=== PATIENT | female | born 1950 | race Caucasian/White ===

== ENCOUNTER → 2019-04-20 07:54 | Outpatient (CLI) | payer OTHER, SELFPAY ==
--- NOTE | ~2019-04-20 | US_ITS ---
EXAMINATION: US abdomen complete EXAM DATE: 04/20/2019 08:35 INDICATION: Pancreatic mass. TECHNIQUE: Multiple grayscale and Doppler images of the complete abdomen were obtained (by a technolo gist who performed the scan) and subsequently reviewed. Comparison is made to prior examination from 06/17/2018. FINDINGS: The abdominal aorta is normal in caliber. Visualized portion IVC is patent. Previously seen pancr eatic cystic region no longer identified. In this location there is now a hypoechoic region measuring 7 mm, could be the same lesion with interval collapse of the fluid component. Previous study had a c ystic region measuring up to 1.7 cm. The liver has normal echogenicity and contour. Liver cyst measuring 1 cm. There is no evidence of i ntrahepatic biliary duct dilation. Portal venous flow was seen in the hepatopedal, normal direction and has normal Doppler waveform. Common bile duct measures 4 mm, which is normal. The gallbladder wall is normal in thickness, with ex pected amount of distention. Small amount of fluid identified adjacent to the gallbladder fossa. The re is no cholelithiases. Technologist performing exam reports patient did not demonstrate sonographic Jolly's sign. Please note that this sign is less reliable in patients who have received pain medic ation. Right kidney: There is normal contour and echogenicity. It measures 11.0 x 4.3 x 5.9 centimeters. There are no focal renal lesions identified. There is no hydronephrosis. Left kidney: There is normal contour and echogenicity. It measures 11.2 x 4.7 x 4.8 centimeters. T here are no focal renal lesions identified. There is no hydronephrosis. The spleen measures 8.3 centimeters and is morphologically normal. IMPRESSION: 1. Significant interval decrease in size of pancreatic lesion, no fluid component identified today. Region had demonstrated 4 years of stability between prior CT scans and is therefore likely benign. C onsider one-year follow-up ultrasound or CT. Reviewed, dictated and finalized at location B. ING MACHINE MECHANIC IMPRESSION: 1. Significant interval decrease in size of pancreatic lesion, no fluid compon ent identified today. Region had demonstrated 4 years of stability between prio r CT scans and is therefore likely benign. Consider one-year follow-up ultrasou nd or CT.
== END ==
PROVIDERS: PCP Internal Medicine; Visit Provider Internal Medicine
DX: K86.89 Other specified diseases of pancreas (principal)
CPT/HCPCS: 76700

== ENCOUNTER → 2019-05-30 11:08 | Outpatient (CLI) | payer OTHER, SELFPAY ==
--- NOTE | ~2019-05-30 | MM_ITS ---
EXAMINATION: MM screening [facility] BI w shereen HISTORY: Screening mammogram TECHNIQUE: Craniocaudal and mediolateral oblique 3-D tomosynthesis images were obtained and synthetic 2-D images were generated. CAD analysis was submitted and interpreted. COMPARISON: 02/11/2019, 03/18/2017, 02/20/2016 bilateral digital screening mammogram examinations BREAST PARENCHYMAL COMPOSITION: There are scattered areas of fibroglandular density. FINDINGS: There is no evidence of suspicious mass, calcification, or architectural distortion to sugg est malignancy in either breast. There has been no suspicious interval change. IMPRESSION: 1. No mammographic evidence of malignancy. 2. Recommend routine screening mammography in one year. BI-RADS Category 1: Negative Reviewed, dictated and finalized at location A.
== END ==
PROVIDERS: PCP Internal Medicine; Visit Provider Obstetrics & Gynecology Gynecology
DX: Z12.31 Encounter for screening mammogram for malignant neoplasm of breast (principal)
CPT/HCPCS: 77063; 77067

== ENCOUNTER → 2020-06-18 10:32 | Outpatient (CLI) | payer OTHER, SELFPAY ==
--- NOTE | ~2020-06-18 | MM_ITS ---
EXAMINATION: MM screening [facility] BI w shereen HISTORY: Screening mammogram TECHNIQUE: Craniocaudal and mediolateral oblique 3-D tomosynthesis images were obtained and synthetic 2-D images were generated. CAD analysis was submitted and interpreted. COMPARISON: 05/30/2019, 04/14/2018, 03/18/2017 bilateral digital screening mammogram examinations BREAST PARENCHYMAL COMPOSITION: There are scattered areas of fibroglandular density. FINDINGS: There is no evidence of suspicious mass, calcification, or architectural distortion to sugg est malignancy in either breast. There has been no suspicious interval change. IMPRESSION: 1. No mammographic evidence of malignancy. 2. Recommend routine screening mammography in one year. BI-RADS Category 1: Negative Reviewed, dictated and finalized at location A.
--- NOTE | ~2020-06-18 | DEXA_ITS ---
Bone Density Report Name: Stacia Albarado Age: 70 Sex: Female Ethnicity: White Date of : 1950 Indication: osteopenia; postmenopausal Referring Provider: LUDWIG GORDON Study: Bone densitometry was performed. Exam Date: June 18, 2020 Accession number: [id number] Bone Density: Region BMD T-score Z-score Classification AP Spine (L1-L4) 0.840 -1.9 0.3 Osteopenia Femoral Neck (Left) 0.742 -1.0 0.9 Normal Total Hip (Left) 0.831 -0.9 0.7 Normal Femoral Neck (Right) 0.660 -1.7 0.2 Osteopenia Total Hip (Right) 0.854 -0.7 0.8 Normal Total Hip Mean 0.843 -0.8 0.8 Normal World Health Organization criteria for BMD impression classify patients as: Normal (T-score at or above -1.0), Osteopenia (T-score between -1.0 and -2.5), or Osteoporosis (T-score at or below -2.5). 10-year Fracture Risk(1): Major Osteoporotic Fracture 9.5% Hip Fracture 1.7% Reported Risk Factors: [place] (), Neck BMD=0.660, BMI=21.3 (1) FRAX(R) Version 3.08. Fracture probability calculated for an untreated patient. Fracture probability may be lower if the patient has received treatment. Previous Exams: Region Exam Age BMD T-score BMD Change BMD Change Date g/cm2 vs Baseline vs Previous AP Spine(L1-L4) 06/18/2020 70 0.840 -1.9 -0.084 -0.028* 04/14/2018 67 0.868 -1.6 -0.056 -0.022 02/04/2016 65 0.890 -1.4 -0.034 0.018 11/07/2013 63 0.872 -1.6 -0.052 -0.023* 09/24/2011 61 0.895 -1.4 -0.030 -0.007 09/19/2009 59 0.902 -1.3 -0.023 0.023 09/15/2007 57 0.879 -1.5 -0.045 0.023* 09/10/2005 55 0.856 -1.7 -0.068 -0.068 06/07/2003 53 0.924 -1.1 Total Hip(Left) 06/18/2020 70 0.831 -0.9 0.056 0.004 04/14/2018 67 0.827 -0.9 0.052 -0.060* 02/04/2016 65 0.887 -0.4 0.112 0.022 11/07/2013 63 0.865 -0.6 0.090 0.021 09/24/2011 61 0.844 -0.8 0.068 0.053* 09/19/2009 59 0.791 -1.2 0.016 -0.010 09/15/2007 57 0.801 -1.2 0.026 -0.041* 09/10/2005 55 0.842 -0.8 0.067 0.067 06/07/2003 53 0.775 -1.4 Total Hip(Right) 06/18/2020 70 0.854 -0.7 0.041 -0.028* 04/14/2018 67 0.881 -0.5 0.068 -0.058* 02/04/2016 65 0.939 0.0 0.126 0.001 11/07/2013 63 0.938 0.0 0.125 0.080* 09/24/2011 61 0.858 -0.7 0.045
== END ==
PROVIDERS: PCP Internal Medicine; Visit Provider Obstetrics & Gynecology Gynecology
DX: Z12.31 Encounter for screening mammogram for malignant neoplasm of breast (principal); Z78.0 Asymptomatic menopausal state; M85.89 Other specified disorders of bone density and structure, multiple sites
CPT/HCPCS: 77063; 77067; 77080

== ENCOUNTER 2021-01-02 07:46 | Outpatient (CLI) | payer OTHER, SELFPAY ==
--- NOTE | ~2021-01-02 | MR_ITS ---
EXAMINATION: MR shoulder RT wo con DATE: 01/02/2021 09:11 INDICATION: Right shoulder pain. TECHNIQUE: Magnetic resonance imaging (MRI) of the right shoulder was performed without intravenous c ontrast. Sequences included axial PD-weighted FS FSE, coronal oblique PD-weighted FS FSE and T2-weigh rhiannon FS FSE, and sagittal oblique T2-weighted FS FSE and T1-weighted FSE. COMPARISON: None. FINDINGS: Coracoacromial arch: The acromion undersurface is curved in morphology (type II). There is moderate acromioclavicular join t osteoarthritis. There is moderate subacromial/subdeltoid bursitis. Rotator cuff: There is moderate supraspinatus tendinopathy and mild infraspinatus tendinopathy. Teres minor tendon is normal. There is moderate subscapularis tendinopathy. No tear. There is no asymmetric fatty atroph y of the rotator cuff muscle bellies. There is edema at the myotendinous junction of supraspinatus, c onsistent with mild strain. Biceps tendon and glenoid labrum: Biceps tendon is in bicipital groove. There is mild intra-articular biceps tendinopathy. There is a d egenerative tear of superior glenoid labrum. Fluid: There is a small glenohumeral joint effusion. Bones/cartilage: There is partial-thickness cartilage loss of superior glenoid with subchondral cyst. There is partial -thickness cartilage loss of humeral head, worst superomedially. IMPRESSION: 1. Moderate rotator cuff tendinopathy. 2. Mild strain of supraspinatus muscle. 3. Moderate glenohumeral joint chondrosis. 4. Moderate acromioclavicular joint osteoarthritis. 5. Mild intra-articular biceps tendinopathy. 6. Small glenohumeral joint effusion. 7. Moderate subacromial/subdeltoid bursitis. Reviewed, dictated and finalized at location A. BOAT CAPTAIN
== END 2021-01-02 07:47 | disposition home or self-care (01) ==
PROVIDERS: PCP Internal Medicine; Visit Provider Orthopaedic Surgery
DX: M25.511 Pain in right shoulder (principal); M75.81 Other shoulder lesions, right shoulder; S46.011A Strain of muscle(s) and tendon(s) of the rotator cuff of right shoulder, initial encounter; M94.8X1 Other specified disorders of cartilage, shoulder; M19.011 Primary osteoarthritis, right shoulder; M25.411 Effusion, right shoulder; M75.51 Bursitis of right shoulder
CPT/HCPCS: 73221

== ENCOUNTER → 2021-05-19 07:59 | Outpatient (CLI) | payer OTHER, SELFPAY ==
--- NOTE | ~2021-05-19 | US_ITS ---
EXAMINATION: US right upper quadrant EXAM DATE: 05/19/2021 08:23 INDICATION: Pancreatic lesion . TECHNIQUE: Multiple grayscale and Doppler images of the abdomen right upper quadrant were obtained (b y a technologist who performed the scan) and subsequently reviewed. Comparison is made to prior exami nation from 04/20/2019. FINDINGS: There is thin pancreatic head cystic region measuring 5 x 9 mm, consistent with benign hist ology. Could be a The liver has normal echogenicity and contour. There is a 1.2 x 0.8 x 1.5 cm liver cyst. There is no evidence of intrahepatic biliary duct dilation. Portal venous flow was seen in t he hepatopedal, normal direction and has normal Doppler waveform. No right-sided hydronephrosis. Common bile duct measures 4 mm, which is normal. The gallbladder wall is normal in thickness, with ex pected amount of distention. No sonographic evidence of pericholecystic fluid. There is no cholelit hiases. Technologist performing exam reports patient did not demonstrate sonographic Jolly's sign. Please note that this sign is less reliable in patients who have received pain medication. IMPRESSION: Pancreatic and liver cysts, benign findings. Reviewed, dictated and finalized at location B.
== END ==
PROVIDERS: PCP Internal Medicine; Visit Provider Internal Medicine
DX: K86.9 Disease of pancreas, unspecified (principal); K85.90 Acute pancreatitis without necrosis or infection, unspecified; K76.89 Other specified diseases of liver
CPT/HCPCS: 76705

== ENCOUNTER → 2021-05-20 12:24 | Outpatient (CLI) | payer OTHER, SELFPAY ==
--- NOTE | ~2021-05-20 | MR_ITS ---
EXAMINATION: MR brain/brain stem wo/w con EXAM DATE: 05/20/2021 13:09 INDICATION: Headache, worsening at the vertex. TECHNIQUE: Magnetic resonance imaging (MRI) of the brain/brain stem obtained without contrast. Sagit brijehs T1, axial diffusion, gradient echo (T2*), T1, T2, FLAIR sequences obtained. Patient was then inj ected with 10 cc intravenous Multihance contrast. Axial and coronal postcontrast T1 weighted sequence s obtained. There is no prior study for comparison. FINDINGS: There are punctate old bilateral basal ganglia lacunar infarctions. There are no areas of r estricted diffusion to suggest acute infarction. There is no acute hemorrhage seen on the T2*, a hem osiderin sensitive sequence. No intraparenchymal brain mass lesion. There is mild periventricular and subcortical T2/FLAIR signal hyperintensity, nonspecific but probably related to small vessel isc hemic disease (microangiopathy). There is mild prominence of the sulci and ventricles related to ce rebral atrophy. There are no extra-axial collections. Flow voids are seen in the cerebral arteries on the T2-weighted sequences consistent with their expected patency. Patient has had bilateral ocula r lens surgery. Soft tissue is unremarkable. IMPRESSION: 1. No acute intracranial findings. 2. Chronic age related findings. 3. Punctate old bilateral lacunar infarctions. Reviewed, dictated and finalized at location B.
[2021-05-20 12:50] LABS: Estimated Glomerular Filt Rate > 60
== END ==
PROVIDERS: PCP Internal Medicine; Visit Provider Internal Medicine
DX: R51.9 Headache, unspecified (principal); R93.0 Abnormal findings on diagnostic imaging of skull and head, not elsewhere classified
CPT/HCPCS: 70553; A9577

== ENCOUNTER → 2021-12-02 10:47 | Outpatient (CLI) | payer OTHER, SELFPAY ==
--- NOTE | ~2021-12-02 | MM_ITS ---
EXAMINATION: MM screening [facility] BI w shereen HISTORY: Screening TECHNIQUE: Craniocaudal and mediolateral oblique 3-D tomosynthesis images were obtained and synthetic 2-D images were generated. CAD analysis was submitted and interpreted. COMPARISON: Comparison to multiple prior studies sequentially, with oldest reviewed study dated 11/22. BREAST PARENCHYMAL COMPOSITION: The breasts are heterogeneously dense, which may obscure small masses FINDINGS: There is no evidence of suspicious mass, calcification, or architectural distortion to sugg est malignancy in either breast. There has been no suspicious interval change. IMPRESSION: 1. No mammographic evidence of malignancy. 2. Recommend routine screening mammography in one year. BI-RADS Category 1: Negative Reviewed, dictated and finalized at location A.
== END ==
PROVIDERS: PCP Internal Medicine; Visit Provider Obstetrics & Gynecology Gynecology
DX: Z12.31 Encounter for screening mammogram for malignant neoplasm of breast (principal)
CPT/HCPCS: 77063; 77067

== ENCOUNTER → 2022-10-26 12:33 | Outpatient (CLI) | payer OTHER, SELFPAY ==
--- NOTE | ~2022-10-26 | DEXA_ITS ---
Bone Density Report Name: KENNETH SUE Age: 72 Sex: Female Ethnicity: White Date of : 1950 Indication: osteopenia; height loss; postmenopausal Referring Provider: LUDWIG GORDON Study: Bone densitometry was performed. Exam Date: October 26, 2022 Accession number: [id number] Bone Density: Region BMD T-score Z-score Classification AP Spine (L1-L4) 0.847 -1.8 0.5 Osteopenia Femoral Neck (Left) 0.737 -1.0 1.0 Normal Total Hip (Left) 0.835 -0.9 0.8 Normal Femoral Neck (Right) 0.719 -1.2 0.8 Osteopenia Total Hip (Right) 0.856 -0.7 1.0 Normal Total Hip Mean 0.846 -0.8 0.9 Normal World Health Organization criteria for BMD impression classify patients as: Normal (T-score at or above -1.0), Osteopenia (T-score between -1.0 and -2.5), or Osteoporosis (T-score at or below -2.5). 10-year Fracture Risk(1): Major Osteoporotic Fracture 9.0% Hip Fracture 1.4% Reported Risk Factors: [place] (), Neck BMD=0.719, BMI=21.1 (1) FRAX(R) Version 3.08. Fracture probability calculated for an untreated patient. Fracture probability may be lower if the patient has received treatment. Previous Exams: Region Exam Age BMD T-score BMD Change BMD Change Date g/cm2 vs Baseline vs Previous AP Spine(L1-L4) 10/26/2022 72 0.847 -1.8 -0.077 0.007 06/18/2020 70 0.840 -1.9 -0.084 -0.028* 04/14/2018 67 0.868 -1.6 -0.056 -0.022 02/04/2016 65 0.890 -1.4 -0.034 0.018 11/07/2013 63 0.872 -1.6 -0.052 -0.023* 09/24/2011 61 0.895 -1.4 -0.030 -0.007 09/19/2009 59 0.902 -1.3 -0.023 0.023 09/15/2007 57 0.879 -1.5 -0.045 0.023* 09/10/2005 55 0.856 -1.7 -0.068 -0.068 06/07/2003 53 0.924 -1.1 Total Hip(Left) 10/26/2022 72 0.835 -0.9 0.060 0.004 06/18/2020 70 0.831 -0.9 0.056 0.004 04/14/2018 67 0.827 -0.9 0.052 -0.060* 02/04/2016 65 0.887 -0.4 0.112 0.022 11/07/2013 63 0.865 -0.6 0.090 0.021 09/24/2011 61 0.844 -0.8 0.068 0.053* 09/19/2009 59 0.791 -1.2 0.016 -0.010 09/15/2007 57 0.801 -1.2 0.026 -0.041* 09/10/2005 55 0.842 -0.8 0.067 0.067 06/07/2003 53 0.775 -1.4 Total Hip(Right) 10/26/2022 72 0.856 -0.7 0.043 0.002 06/18/2020 70 0.854 -0.7 0.041 -0.028* 04/14/2018 67 0.881 -0.5
== END ==
PROVIDERS: PCP Internal Medicine; Visit Provider Obstetrics & Gynecology Gynecology
DX: M85.88 Other specified disorders of bone density and structure, other site (principal); Z78.0 Asymptomatic menopausal state; M85.851 Other specified disorders of bone density and structure, right thigh
CPT/HCPCS: 77080

== ENCOUNTER 2022-12-03 16:23 | Emergency (ER) | payer OTHER, SELFPAY ==
[2022-12-03 16:29] VITALS: BP 145/66; PULSE 66; RESP 16; TEMP 36.5; O2SAT 100
--- NOTE | 2022-12-03 17:00 | ED.SKABFB ---
HPI - Skin/Abscess/Foreign Bdy General Chief complaint: Skin/Abscess/Foreign Body Stated complaint: L FINGER BURN Source: patient Mode of arrival: ambulatory Limitations: no limitations History of Present Illness HPI narrative: 72-year-old female presenting for complaint of a burn to the left little finger. Patient states injury was probably 2 days ago, however she is unsure of known injury. She states the arm had a nerve block for a wrist surgery. She noticed and oozing wound to the top of the left little finger today. Denies significant pain. Endorses normal sensation and range of motion. Hand remains swollen from the surgery. She has removed her rings. Related Data Home Medications Medication Instructions Recorded Confirmed fluoxetine 10 mg capsule 10 mg PO DAILY 12/03/22 12/03/22 Allergies Allergy/AdvReac Type Severity Reaction Status Date / Time Sulfa (Sulfonamide Allergy Unknown Rash Verified 12/03/22 17:01 Antibiotics) Review of Systems Review of Systems: CONSTITUTIONAL: Denies body aches, fever, chills, or sweats. EYES: Denies visual changes, redness, or discharge. ENT: Denies rhinorrhea, congestion CARDIOVASCULAR: Denies chest pain, palpitations, or edema. RESPIRATORY: Denies cough or dyspnea. GASTROINTESTINAL: Denies abdominal pain, nausea, vomiting, or diarrhea. SKIN: Reports a burn to the left hand MUSCULOSKELETAL: Denies back pain, joint pain, or myalgia. NEUROLOGIC: Denies headache, numbness, tingling, or weakness. [facility] Past Medical History Medical History (Updated 12/03/22 @ 17:24 by Christin Hopkins APRN) Osteoporosis Family History Family History Sibling Family history of schizophrenia Father Cerebrovascular accident Family history of respiratory disorder Patient's father is Mother Family history of pancreatic cancer Patient's mother is Other Hypertension Social History Social History Smoking status: Never smoker Alcohol intake: current Comments At time of signature, I have reviewed and agree with nursing past medical, surgical, social and family history unless otherwise noted. Please see nursing chart for further information. There is no relevant family history pertinent to the presenting complaint Exam Narrative: GENERAL: Well-appearing HEAD: Normocephalic, atraumatic. EYES: conjunctivae clear, and EOMI. ENT: Mucous membranes moist. Oropharynx without edema, erythema or lesions. NECK: Supple. No lymphadenopathy CHEST: Clear to auscultation. HEART: Regular rate and rhythm. SKIN: Warm, dry. Left 4th digit ulnar aspect of PIP with 2 firm intact blisters approx 3mm diameter; Left 5th digit dorsal surface of proximal phalanx with partial thickness loss approx 2cmx0.5cm, white skin c/w burn extending to the PIP, clear drainage to the 5th MCP joint. Distal sensation and circulation intact. Skin color normal, cap refill <3 seconds. Normal ROM to fingers. NEURO: Alert and oriented x3. Course Course Emergency Course: Patient is aware of diagnosis, understands and agrees to treatment plan. Anticipatory guidance given. Patient agrees to follow-up as directed and is aware of reasons to seek care at the emergency department. Portions of this record may have been created with voice recognition software Level of Care: Express Care Visit Vital Signs Vital signs: Vital Signs Temperature 97.7 F 12/03/22 16:29 Pulse Rate 66 12/03/22 16:29 Respiratory Rate 16 12/03/22 16:29 Blood Pressure 145/66 H 12/03/22 16:29 Pulse Oximetry 100 12/03/22 16:29 Temperature 97.7 F 12/03/22 16:29 Pulse Rate 66 12/03/22 16:29 Respiratory Rate 16 12/03/22 16:29 Blood Pressure 145/66 H 12/03/22 16:29 Pulse Oximetry 100 12/03/22 16:29 Reviewed MDM - Skin/Abscess/Foreign Bdy
== END 2022-12-03 17:34 | disposition home or self-care (01) ==
PROVIDERS: Emergency Provider Nurse Practitioner Family; PCP Internal Medicine
DX: T23.222A Burn of second degree of single left finger (nail) except thumb, initial encounter (principal); T31.0 Burns involving less than 10% of body surface; Z79.899 Other long term (current) drug therapy; X08.8XXA Exposure to other specified smoke, fire and flames, initial encounter
CPT/HCPCS: 99213; G0463

== ENCOUNTER → 2022-12-04 11:24 | Outpatient (CLI) | payer OTHER, SELFPAY ==
--- NOTE | ~2022-12-04 | MM_ITS ---
EXAMINATION: MM screening [facility] BI w shereen HISTORY: Screening mammogram TECHNIQUE: Craniocaudal and mediolateral oblique 3-D tomosynthesis images were obtained and synthetic 2-D images were generated. CAD analysis was submitted and interpreted. COMPARISON: 12/10/2021, 06/18/2020, 05/30/2019 BREAST PARENCHYMAL COMPOSITION:The breasts are heterogeneously dense, which may obscure small masses. FINDINGS: No suspicious mass, calcification, or architectural distortion are identified in either shaina ast to suggest malignancy. There has been no suspicious interval change. IMPRESSION: No mammographic evidence of malignancy. Recommend routine screening mammography in one year. BI-RADS Category 1: Negative Reviewed, dictated and finalized at location .
== END ==
PROVIDERS: PCP Internal Medicine; Visit Provider Obstetrics & Gynecology Gynecology
DX: Z12.31 Encounter for screening mammogram for malignant neoplasm of breast (principal)
CPT/HCPCS: 77063; 77067

== ENCOUNTER 2024-02-02 10:45 | Outpatient (CLI) | payer OTHER, SELFPAY ==
--- NOTE | ~2024-02-02 | MM_ITS ---
EXAMINATION: MM screening [facility] BI w shereen HISTORY: Screening TECHNIQUE: Craniocaudal and mediolateral oblique 3-D tomosynthesis images were obtained and synthetic 2-D images were generated. CAD analysis was submitted and interpreted. COMPARISON: 03/18/2017 BREAST PARENCHYMAL COMPOSITION: Not dense: There are scattered areas of fibroglandular density. FINDINGS: There is a focal asymmetry laterally in the left breast on CC view. The right breast is sta ble without evidence for malignancy. IMPRESSION: 1. New focal left breast asymmetry laterally, middle third, on CC view only. 2. Additional mammographic views and possible breast ultrasound are recommended. BI-RADS Category 0: Incomplete: Needs additional imaging evaluation. Reviewed, dictated and finalized at location B. KDOWN MILL OPERATOR IMPRESSION: 1. New focal left breast asymmetry laterally, middle third, on CC view only. 2. Additional mammographic views and possible breast ultrasound are recommended . BI-RADS Category 0: Incomplete: Needs additional imaging evaluation.
== END 2024-02-02 10:46 | disposition home or self-care (01) ==
LOC: MICIMG 10:46
PROVIDERS: PCP Internal Medicine; Visit Provider Obstetrics & Gynecology Gynecology
DX: Z12.31 Encounter for screening mammogram for malignant neoplasm of breast (principal); R92.8 Other abnormal and inconclusive findings on diagnostic imaging of breast
CPT/HCPCS: 77063; 77067

== ENCOUNTER 2024-02-16 09:30 | Outpatient (CLI) | payer OTHER, SELFPAY ==
--- NOTE | ~2024-02-16 | MM_ITS ---
EXAMINATION TYPE: MM diagnostic yolette LT w shereen COMPARISON: 02/02/2024 and dating back to 06/18/2020 REASON FOR STUDY: Abn yolette single view findings on previous screening mammography. TECHNIQUE: Spot compression of the central left breast was performed in the craniocaudal view with 3- D mammogram (digital breast tomosynthesis) with CAD. Computer-aided detection was utilized in evaluat ion of this examination. BREAST PARENCHYMAL COMPOSITION:Dense: The breasts are heterogeneously dense, which may obscure small masses. FINDINGS: The asymmetry completely effaces with spot compression, likely representing a summation artifact (ove rlapping fibroglandular tissue) for which no further evaluation is needed. IMPRESSION: No mammographic or tomographic evidence to suggest the presence of malignancy BI-RADS CATEGORY: 2: Benign findings RECOMMENDATION: Resumption of yearly mammography. Reviewed, dictated and finalized at location A. E HAND PACKER
== END 2024-02-16 09:31 | disposition home or self-care (01) ==
LOC: MICIMG 09:31
PROVIDERS: PCP Internal Medicine; Visit Provider Obstetrics & Gynecology Gynecology
DX: R92.8 Other abnormal and inconclusive findings on diagnostic imaging of breast (principal)
CPT/HCPCS: 77061; 77065; G0279

== ENCOUNTER 2024-12-17 10:07 | Outpatient (CLI) | payer OTHER, SELFPAY ==
--- NOTE | ~2024-12-17 | DEXA_ITS ---
Bone Density Report Name: KENNETH SUE Age: 74 Sex: Female Ethnicity: White Date of : 1950 Indication: osteopenia; height loss; Referring Provider: LUDWIG GORDON Study: Bone densitometry was performed. Exam Date: December 17, 2024 Accession number: [id number] Bone Density: Region BMD T-score Z-score Classification AP Spine(L1-L4) 0.809 -2.2 0.3 Osteopenia Femoral Neck (Left) 0.724 -1.1 1.0 Osteopenia Total Hip (Left) 0.740 -1.7 0.2 Osteopenia Femoral Neck (Right) 0.659 -1.7 0.4 Osteopenia Total Hip (Right) 0.737 -1.7 0.1 Osteopenia Total Hip Mean 0.739 -1.7 0.2 Osteopenia World Health Organization criteria for BMD impression classify patients as: Normal (T-score at or above -1.0), Osteopenia (T-score between -1.0 and -2.5), or Osteoporosis (T-score at or below -2.5). 10-year Fracture Risk(1): Major Osteoporotic Fracture 11% Hip Fracture 2.6% Reported Risk Factors: [place] (), Neck BMD=0.659, BMI=21.0 (1) FRAX(R) Version 3.08. Fracture probability calculated for an untreated patient. Fracture probability may be lower if the patient has received treatment. Previous Exams: -- Region Exam Age BMD T-score BMD Change BMD Change Date g/cm2 vs Baseline vs Previous -- AP Spine (L1-L4) 12/17/2024 74 0.809 -2.2 -12.4%# -4.5%* 10/26/2022 72 0.847 -1.8 -8.3%# 0.9% 06/18/2020 70 0.840 -1.9 -9.1%# -3.2%* 04/14/2018 67 0.868 -1.6 -6.1%# -2.5% 02/04/2016 65 0.890 -1.4 -3.7%# 2.1% 11/07/2013 63 0.872 -1.6 -5.7%# -2.5%* 09/24/2011 61 0.895 -1.4 -3.2%# -0.8% 09/19/2009 59 0.902 -1.3 -2.4%# 2.6% 09/15/2007 57 0.879 -1.5 -4.9%# -4.9%# 06/07/2003 53 0.924 -1.1 Total Hip(Left) 12/17/2024 74 0.740 -1.7 -4.6%# -11.4%* 10/26/2022 72 0.835 -0.9 7.7%# 0.5% 06/18/2020 70 0.831 -0.9 7.2%# 0.5% 04/14/2018 67 0.827 -0.9 6.6%# -6.8%* 02/04/2016 65 0.887 -0.4 14.4%# 2.6% 11/07/2013 63 0.865 -0.6 11.6%# 2.5% 09/24/2011 61 0.844 -0.8 8.8%# 6.7%* 09/19/2009 59 0.791 -1.2 2.0%# -1.2% 09/15/2007 57 0.801 -1.2 3.3%# 3.3%# 06/07/2003 53 0.775 -1.4 Total Hip(Right) 12/17/2024 74 0.737 -1.7 -9.3%# -13.8%* 10/26/2022 72 0.856 -0.7 5.2%# 0.2% 06/18/2020 70 0.854 -0.7 5.0%# -3.1%* 04/14/2018 67 0.881 -0.5 8.4%# -6.1%* 02/04/2016 65 0.939 0.0 15.5%# 0.1% 11/07/2013 63 0.938 0.0 15.4%# 9.3%* 09/24/2011 61 0.858 -0.7 5.6%# 2.4% 09/19/2009 59 0.839 -0.8 3.1%# 3.2% 09/15/2007 57 0.813 -1.1 0.0%# 0.0%# 06/07/2003 53 0.813 -1.1 -- *Denotes significance at 95% confidence level, LSC for AP Spine = 0.022 g/cm2, LSC for Total Hip = 0.027 g/cm2 # Denotes dissimilar scan types or analysis methods Clinical Information Provided by Patient: Has used the following medications: Boniva (i.e. ibandronate), Fosamax (i.e. alendronate), Prolia (i.e. denosumab), Vitamin D Patient maximum height was 66 Menopause Age: 46 Drinks caffeinated beverages Onset of menses at age 14 Number of children 2 Impression: The patient has low bone mass, based on the Total Spine T-score. The patient has an estimated ten-year risk of hip fracture of 2.6% and an estimated ten-year risk of major fracture of 11%, based on the WHO FRAX algorithm. The BMD for the AP Spine (L1-L4) decreased, changing by -4.5% since the last DXA exam. The BMD for the Total Hip(Left) decreased, changing by -11.4% since the last DXA exam. The BMD for the Total Hip(Right) decreased, changing by -13.8% since the last DXA exam. Discussion: BONE DENSITY IS LOW AT ONE OR MORE SKELETAL SITES. This patient's lowest T-score is low at one or more skeletal sites. It meets the World Health Organization's (WHO) criteria for ?low bone mass? (T-score between -1.0 and -2.5). The patient's 10-year risk of fracture as calculated by FRAX is less than the threshold where pharmacological therapy is recommended by the National Osteoporosis Foundation (NOF). However, all treatment decisions require clinical judgment and consideration of individual patient factors, including patient preferences, comorbidities, previous drug use, risk factors not captured in the FRAX model (e.g., frailty, falls, vitamin D deficiency, increased bone turnover, interval significant decline in bone density) and possible under or overestimation of fracture risk by FRAX. The patient should follow a healthful lifestyle (good nutrition with adequate calcium and vitamin D, and appropriate weight-bearing exercise). Follow-Up: Consider repeating this study in 2 years to reassess this patient's status, or sooner if there is some new clinical indication. Reported by: [email or web address] on 12/17/2024 10:49:00 AM. Reviewed, dictated and finalized at location A.
== END 2024-12-17 10:08 | disposition home or self-care (01) ==
PROVIDERS: PCP Internal Medicine; Visit Provider Obstetrics & Gynecology Gynecology
DX: Z78.0 Asymptomatic menopausal state (principal); M85.88 Other specified disorders of bone density and structure, other site; M85.852 Other specified disorders of bone density and structure, left thigh; M85.851 Other specified disorders of bone density and structure, right thigh
CPT/HCPCS: 77080